=== PATIENT | female | born 1950 | race Caucasian/White ===

== ENCOUNTER → 2017-11-16 | Day surgery (SDC) | payer BC ==
[2017-11-02 11:26] VITALS: Ht 167.6 cm; Wt 97.7 kg
[~2017-11-16] VITALS: Ht 167.6 cm; Wt 97.7 kg
[~2017-11-16] MED LIST: 500ML BSS 0.3ML EPI 1:1000PF IRRIG ONE; ACETAMINOPHEN 325 MG TAB PO PRN; ALBU18002 INH; AMVISC PLAIN 0.8ML SYRINGE INT OCU ONE; AMVISC PLUS 0.8ML SYRINGE INT OCU ONE; APIX1TAB3 PO; ATOR-22 PO; ATROPINE SULFATE 0.1 MG/ML 5ML SYR IV PRN; BSS FLUSH ONE; CHOL100010 PO; CLON2TAB10 PO; DIPH-416 PO; DSY/150 PO; EpHEDrine SULFATE INJ 50 MG/ML AMP IV PRN; EpINEphrine INJ 1MG/ML AMP 1 MG/ML AMP ONE; FENTANYL CITRATE INJ 50 MCG/1 ML 2 ML VIAL ONE; FOLI1TAB8 PO; LACTATED RINGER'S 1000ML 500 ML IV SCH; LIDOCAINE 3.5% OPH GEL PER APPLICATION CHARGE ONE; LIDOCAINE HCL 1% MPF 2 ML VIAL ONE; LIDOCAINE HCL 2% 2 ML VIAL (20MG/ML) ONE; MIDAZOLAM HCL 1 MG/ML 2ML VIAL ONE; OMEP-331 PO; ONDANSETRON INJ 2 MG/ML 2 ML VIAL IV PRN; OXYC20TA50 PO; POVIDONE-IODINE OP SOLN 30 ML BTL ONE; PRAV20TA PO; PROPARACAINE 0.5% OP SOLN PER DROP CHARGE OPL SCH; PROPOFOL IV EMULSION 10 MG/ML 20 ML VIAL ONE; SERT50TA PO; SNM/25100 PO; SPRIN/30 INH; SYMIN INH; TOBRAMYCIN/DEXAMETHASONE OPH OINT PER APPLN CHARGE ONE
[2017-11-16] MEDS: PHENYLEPHRINE HCL 2.5% OP SOLN PER DROP CHARGE OPL SCH ×2 (09:09→09:14)
[2017-11-16] MEDS: TROPICAMIDE 1% OP SOLN PER DROP CHARGE OPL SCH ×2 (09:10→09:15)
[2017-11-16] MEDS: CYCLOPENTOLATE HCL 1% OP SOLN PER DROP CHARGE OPL SCH ×2 (09:11→09:17)
[2017-11-16] MEDS: KETOROLAC 0.5% OP SOLN PER DROP CHARGE OPL SCH ×2 (09:12→09:28)
[2017-11-16] MEDS: GATIFLOXACIN OP SOLN PER DROP CHARGE OPL SCH ×2 (09:13→09:29)
--- NOTE | 2017-11-16 09:24 | History & Physical Bridge - [place] ---
H&P Re-Evaluation Bridge Note: I have examined the patient, reviewed the History & Physical and in the interval since the performance of the History & Physical I have noted the following changes of clinical significance: No changes noted
--- NOTE | 2017-11-16 10:11 | [facility] Operative Report ---
Operative Report Date of Service Nov 16, 2017. Operative Report 1. PREOPERATIVE DIAGNOSIS: Cataract of the left eye. 2. POSTOPERATIVE DIAGNOSIS: Same. 3. PROCEDURE: Phacoemulsification with intraocular lens implantation of the left eye. SURGEON: Dr. Tiburcio Aguilar. ANESTHESIA: Topical Lidocaine gel, 1% Non- Preserved intracameral Lidocaine, and monitored intravenous sedation. INDICATIONS FOR THE PROCEDURE: The patient is a 67 - year-old female with a history of cataract of the left eye causing significant visual impairment. The details of the proposed procedure were explained to the patient who asked appropriate questions and following discussion of all risks, benefits and alternatives agreed to have the procedure done. Patient had corneal astigmatism and therefore elected to have a toric lens placed. 4. OPERATION AND FINDINGS: DESCRIPTION OF PROCEDURE: After informed consent was obtained, the patient was placed in an upright position and the cornea was marked at 105 degrees using the [employer] corneal marking tool. The patient was brought to the Operating Room at the [facility]. The patient was placed in a supine position and then the left eye was prepped and draped in the usual sterile fashion for intraocular surgery. A drop of topical Lidocaine gel was placed in the operative eye. A wire lid speculum was then placed in the fornices. A corneal paracentesis was then created temporally. The Non-Preserved Lidocaine was then instilled into the anterior chamber. The anterior chamber was then pressurized with viscoelastic. A 2.0 mm clear corneal incision was then created temporally. A cystotome was inserted into the anterior chamber and used to create a tear in the anterior lens capsule. This capsular tear was then used to create a small flap and the flap was dragged in a counterclockwise direction in order to create a continuous curvilinear capsulorrhexis. Hydrodissection was accomplished with balanced salt solution. Phacoemulsification of the lens nucleus was then performed in a standard divide- and-conquer technique. The phaco time was 15 seconds with an average power of 10 %. The remaining cortical material was removed using irrigation aspiration. The capsular bag was then filled with viscoelastic. A Cortez [id number] +13.5 diopters lens was then loaded into the injector and injected into the capsular bag. The remaining viscoelastic was removed with the irrigation aspiration handpiece. The lens was aligned with the previously made corneal resendiz. The wound was hydrated and then checked and found to be watertight. The intraocular pressure was checked and found to be adequate. The wire lid speculum was removed and the patient's face was cleaned and dried. TobraDex ointment was placed in the inferior fornix. The patient was discharged to the Recovery Room having tolerated the procedure well. There were no complications. The patient will be seen tomorrow in the office for follow-up. I attest to the content of the Intraoperative Record and any orders documented therein. Any exceptions are noted below.
--- NOTE | 2017-11-16 10:12 | Discharge Instructions-SurgCtr ---
Discharge Instructions Date of Service Nov 16, 2017. Visit Reason for Visit: Cataract Left Eye Discharge Discharge Diagnosis / Problem: cataract Discharge Goals Goal(s): Improve function Activity Recommendations Activity Limitations: per Instructions/Follow-up section Anesthesia . Post Anesthesia Instructions: If you have had General Anesthesia or IV Sedation: * Do not drive today. * Resume driving when surgeon permits. * Do not make important decisions or sign legal documents today. * Call surgeon for: 1. Temperature elevations greater than 101 degrees F. 2. Uncontrollable pain. 3. Excessive bleeding. 4. Persistent nausea and vomiting. 5. Medication intolerance (nausea, vomiting or rash). * For nausea and vomiting use only clear liquids such as: tea, soda, bouillon until nausea subsides, then gradually increase diet as tolerated. * If you have any concerns or questions, call your surgeon's office. If physician is unavailable and it is an emergency, call 911 or go to the nearest emergency room. . Diet Recommendations Home Diet: resume previous diet Procedures Procedures Performed: Left Cataract Phacoemulsification With Intraocular Lens Implant; Toric Lens Pending Studies Studies pending at discharge: no Medical Emergencies . Who to Call and When: Medical Emergencies: If at any time you feel your situation is an emergency, please call 911 immediately. . Non-Emergent Contact Non-Emergency issues call your: [facility] . . "Provider Documentation" section prepared by Tiburcio Aguilar. .
--- NOTE | 2017-11-16 10:26 | Anesthesia Progress Nt - [facility] ---
Anesthesia Post Op Note Date & Time Nov 16, 2017 at 10:26 Vital Signs Pain Intensity: 0 Vital Signs Past 12 Hours Date Time Temp Pulse Resp B/P (MAP) Pulse Ox O2 Delivery O2 Flow Rate FiO2 11/16/17 10:12 36.0 57 16 117/72 (87) 93 Room Air 11/16/17 09:02 36.7 53 20 123/77 (92) 100 Room Air Notes Mental Status: alert / awake / arousable, participated in evaluation Pt Amnestic to Procedure: Yes Nausea / Vomiting: adequately controlled Pain: adequately controlled Airway Patency, RR, SpO2: stable & adequate BP & HR: stable & adequate Hydration State: stable & adequate Anesthetic Complications: no major complications apparent
[2017-11-16 10:34] VITALS: BP 114/67; PULSE 52; O2SAT 95
== END | disposition home or self-care (01) ==
LOC: X.SURG 08:31
PROVIDERS: ATTEND Ophthalmology
DX: H26.9 Unspecified cataract (principal); I48.91 Unspecified atrial fibrillation; F41.9 Anxiety disorder, unspecified; F32.9 Major depressive disorder, single episode, unspecified; J44.9 Chronic obstructive pulmonary disease, unspecified; M15.9 Polyosteoarthritis, unspecified; G47.33 Obstructive sleep apnea (adult) (pediatric); G25.81 Restless legs syndrome

== ENCOUNTER 2018-10-27 06:53 | Observation (INO) ==
[~2018-10-27 06:53] MED LIST changes: -500ML BSS 0.3ML EPI 1:1000PF IRRIG ONE; -ACETAMINOPHEN 325 MG TAB PO PRN; -ALBU18002 INH; -AMVISC PLAIN 0.8ML SYRINGE INT OCU ONE; -AMVISC PLUS 0.8ML SYRINGE INT OCU ONE; -APIX1TAB3 PO; -ATOR-22 PO; -ATROPINE SULFATE 0.1 MG/ML 5ML SYR IV PRN; -BSS FLUSH ONE; +CEFAZOLIN 1000MG 1,000 MG/7.5 ML SYR IV SCH; -CHOL100010 PO; -CLON2TAB10 PO; -DIPH-416 PO; -DSY/150 PO; -EpHEDrine SULFATE INJ 50 MG/ML AMP IV PRN; -EpINEphrine INJ 1MG/ML AMP 1 MG/ML AMP ONE; -FENTANYL CITRATE INJ 50 MCG/1 ML 2 ML VIAL ONE; -FOLI1TAB8 PO; -LACTATED RINGER'S 1000ML 500 ML IV SCH; -LIDOCAINE 3.5% OPH GEL PER APPLICATION CHARGE ONE; -LIDOCAINE HCL 1% MPF 2 ML VIAL ONE; -LIDOCAINE HCL 2% 2 ML VIAL (20MG/ML) ONE; +LR 15ML/HR IV SCH; -MIDAZOLAM HCL 1 MG/ML 2ML VIAL ONE; -OMEP-331 PO; -ONDANSETRON INJ 2 MG/ML 2 ML VIAL IV PRN; -OXYC20TA50 PO; +PATIENT'S HEIGHT AND/OR WEIGHT NEEDED SCH; -POVIDONE-IODINE OP SOLN 30 ML BTL ONE; -PRAV20TA PO; -PROPARACAINE 0.5% OP SOLN PER DROP CHARGE OPL SCH; -PROPOFOL IV EMULSION 10 MG/ML 20 ML VIAL ONE; -SERT50TA PO; -SNM/25100 PO; -SPRIN/30 INH; -SYMIN INH; -TOBRAMYCIN/DEXAMETHASONE OPH OINT PER APPLN CHARGE ONE
[2018-10-27] MEDS ORDERED: CEFAZOLIN 2,000 MG/15 ML IV PUSH IV ONE (08:29)
[2018-10-27] MEDS ORDERED: CEFAZOLIN 2000MG 2,000 MG/15 ML SYR IV SCH (08:30)
--- NOTE | 2018-10-27 08:52 | Pre Anesthesia Assessment ---
Date of Service October 27, 2018 Pre Sedation Assessment Vital Signs Temp Pulse Resp BP Pulse Ox 10/27/18 07:46 37.1 C 51 L 20 146/74 H 94 Cardiovascular + regular rate Respiratory + respiratory effort normal Pre-Sedation Airway Assessment Smoking Status: Current every day smoker Hx Sleep Apnea: No Hx Difficult Intubation: No Short, Thick Neck: No Thyromental Distance: > or= 3.5 Finger Breadths Oral Cavity: + WNL Mallampati Class: III ASA: ASA3 Procedure Planning Contraindications for Sedation: none Current Medications Reviewed: Yes Notes The planned sedation has been discussed with the patient. Informed Consent was obtained. I have identified the patient, determined the appropriateness of sedation and have assessed the patient immediately prior to the procedure. All medicine(s) and interventions are by my order.
--- NOTE | 2018-10-27 08:53 | History & Physical Bridge Note ---
Date of Service October 27, 2018 History & Physical Bridge Note I have examined the patient, reviewed the History & Physical and in the interval since the performance of the History & Physical I have noted the following changes of clinical significance: no changes noted
[2018-10-27] MEDS ORDERED: BACITRACIN INJ 50,000 UNIT VIAL ONE (08:54)
[2018-10-27] MEDS ORDERED: BUPIVACAINE 0.25% 30 ML VIAL ONE (08:54)
[2018-10-27] MEDS ORDERED: LIDOCAINE HCL 1% 20 ML VIAL ONE (08:54)
[2018-10-27] MEDS ORDERED: fentaNYL citrate 100 MCG/2 ML VIAL ONE ×2 (09:08→09:28)
[2018-10-27] MEDS ORDERED: MIDAZOLAM HCL 5 MG/ML 1 ML VIAL ONE ×2 (09:08→09:28)
[2018-10-27] MEDS ORDERED: DiphenhydrAMINE HCL 50 MG/ML VIAL ONE (09:40)
[2018-10-27] MEDS ORDERED: OXYCODONE HCL IR 5 MG TAB (IMMEDIATE RELEASE) PO PRN (10:19)
[2018-10-27] MEDS ORDERED: ACETAMINOPHEN 325 MG TAB PO PRN (10:19)
--- NOTE | 2018-10-27 10:19 | Procedure Note ---
Procedure Note Date of Service October 27, 2018 Note Procedure performed: Implantation of dual-chamber permanent pacemaker Staff pyrotechnician: Sukumar Lam MD Indication: Patient is a 68-year-old woman with a history of atrial fibrillation and rapid ventricular rates. She was also noted on outpatient monitoring to have periods of sinus arrest lasting up to 5 seconds when in sinus rhythm. She is therefore felt to be a good candidate for permanent pacemaker due to tachybradycardia syndrome. The implant is being performed for symptomatic nonreversible sinus node dysfunction. A dual-chamber device was selected as the patient is currently in sinus rhythm and wished to maintain AV synchrony. Procedure in detail: The patient was informed of the risks benefits and alternatives to the intended procedure and she wished to proceed. She was taken to the electrophysiology suite in a fasting state. A preoperative antibiotic had been administered. The patient was monitored electrocardiographically throughout today's procedure and conscious sedation was administered per protocol. The left upper pectoral area is prepped and draped in usual sterile fashion. This area was anesthetized using subcutaneous administration of a xylocaine solution. An incision was made at this site and carried down to the prepectoralis fascia using sharp dissection. Electrocautery was also employed for dissection as well as for hemostasis. A device pocket was fashioned tissues above the pectoralis muscle. Subsequent to this maneuver the left axillary vein was accessed using modified Seldinger technique. Sheaths were placed over guidewires at this site and used to facilitate passage of the pacing leads to the respective chambers under fluoroscopic guidance. This included right atrial and right ventricular leads. Adequate sensing and threshold parameters were obtained prior to Active fixation of the leads to the endocardial surface. The proximal portion leads were then sutured the prepectoral fascia using nonabsorbable suture. The device pocket was irrigated with antibiotic solution. The leads were then attached to the device. The device and leads were then placed in the pocket and pocket was closed in 3 layers of absorbable suture. Steri-Strips and sterile dressing were applied. The device was tested noninvasively prior to conclusion the procedure. The patient tolerated procedure well there no immediate complications. Equipment used: New pulse generator: Wardrobe Supervisor Panjo. Model number: [id number] serial number [id number] Right atrial lead: Wardrobe Supervisor [employer]. Model number: [id number] serial number [id number] Right ventricular lead: Wardrobe Supervisor [employer]. Model number: [id number] serial number [id number] Measured data: Right atrial lead: P waves measure 3 mV pacing thresholds 0.5 V 0.4 ms with a pacing impedance of 513 ohms Right ventricular lead: R waves measure 3.6 mV. Pacing threshold was 0.5 V 0.4 ms with a pacing impedance of 570 ohms Impression: Successful implantation of dual-chamber permanent pacemaker Coding
[2018-10-27] MEDS ORDERED: clonazePAM 1 MG TAB PO PRN (11:52)
[2018-10-27] MEDS ORDERED: TRAZODONE HCL 50 MG TAB PO PRN (11:52)
[2018-10-27] MEDS ORDERED: ALBUTEROL 0.083% NEBU SOLN 3 ML VIAL NEB PRN (11:52)
[2018-10-27] MEDS: OXYCODONE HCL IR 5 MG TAB (IMMEDIATE RELEASE) PO PRN ×3 (12:14→23:12)
[2018-10-27] MEDS ORDERED: PRAVASTATIN SOD 10 MG TAB PO SCH (17:00)
[2018-10-27] MEDS: CEFAZOLIN 1000MG 1,000 MG/7.5 ML SYR IV SCH (17:23)
[2018-10-27] MEDS: BUDESONIDE/FORMOTEROL FUMARATE 80/4.5 60 PUFFS/INHALER INH SCH (19:28)
[2018-10-27] MEDS ORDERED: CARBIDOPA/LEVODOPA 25/100MG TAB PO SCH (21:00)
[2018-10-27] MEDS ORDERED: OXYBUTYNIN CHLORIDE 5 MG TAB PO SCH (21:00)
[2018-10-28] MEDS: CEFAZOLIN 1000MG 1,000 MG/7.5 ML SYR IV SCH ×2 (02:52→10:05)
--- NOTE | 2018-10-28 07:55 | XRay Report ---
TWO VIEW CHEST CLINICAL HISTORY: Status post pacemaker implantation. FINDINGS: PA and lateral chest radiographs are obtained. No prior studies are available for compariso n at the time of dictation. A 2-lead cardiac pacemaker has been placed and partially obscures the lef t mid chest. Leads project over the right atrial appendage and the right ventricle. The heart is enla rged and there is atherosclerotic calcification of the thoracic aorta. The pulmonary vasculature is n oncongested. Emphysematous change is suggested. There is bibasilar scarring/atelectasis. No airspace consolidation or pleural effusion is identified. There is no pneumothorax. The skeletal structures ar e osteopenic. There is a compression deformity of evidence of previous vertebroplasty involving L1. IMPRESSION: 1. A 2-lead cardiac pacemaker has been placed as above. 2. No pneumothorax is identified post procedure. 3. Cardiomegaly without radiographic evidence of congestive failure. 4. Suspect emphysema. Electronically signed by: Justino Fatima M.D. 10/28/2018 7:54 AM
[2018-10-28] MEDS: BUDESONIDE/FORMOTEROL FUMARATE 80/4.5 60 PUFFS/INHALER INH SCH (08:29)
[2018-10-28] MEDS ORDERED: SERTRALINE HCL 50 MG TABLET PO SCH (09:00)
[2018-10-28] MEDS ORDERED: METOPROLOL SUCC 50MG EXT REL TAB PO SCH (09:00)
[2018-10-28] MEDS ORDERED: TIOTROPIUM BROMIDE 5 PUFF/90 MCG INH INH SCH (09:00)
[2018-10-28] MEDS ORDERED: ASCORBIC ACID 500 MG TAB PO SCH (09:00)
[2018-10-28] MEDS ORDERED: PANTOprazole 40 MG TAB PO SCH (09:00)
--- NOTE | 2018-11-03 13:05 | Discharge Summary ---
Date of Service November 03, 2018 Admission HPI Per Admitting Provider Patient with history of tachy-merle syndrome Principal Diagnosis Tachy-merle syndrome Discharge Exam On the day of discharge the patient did have some moderate pain at the site of the device implant. There is no evidence of hematoma. There is no significant erythema or drainage. Chest x-ray demonstrated adequate lead position without evidence of pneumothorax. Device interrogation revealed normal device function on both leads. Discharge Data Allergies Allergy/AdvReac Type Severity Reaction Status Date / Time Sulfa (Sulfonamide Allergy Unknown swelling Verified 10/27/18 07:45 Antibiotics) of face Procedures Performed Operation Date: 10/27/18 09:00 Actual Procedures p Pacer with A/V Leads (Dual) - Filipe Lam MD Ordered Studies 10/27/18 06:45 EP Lab Images for PACS ONCE Hospital Course (1) Tachy-merle syndrome: On the day of admission the patient underwent implantation of dual-chamber Medtronic pacemaker. This was without complication. The following morning the device function was good there was no evident complication. Total Time Total Time Spent Total Time Spent (In Minutes): 10 Total Time Includes: Examination of the Patient, Discharge Planning and Medication Reconciliation Discharge Plan Discharge Items Patient Disposition: Home - Self-Care Reason For Visit: A-FIB Discharge Diagnosis: Tachy-merle syndrome Discharge Goals: Therapeutic intervention Activity: Per 'Additional Instructions' section Activity Comment: No lifting left arm above shoulder or behind neck for 6 weeks Lifting: No more than 10 pounds Bathing: Keep incision dry Bathing Comment: Keep wound dry and steri-strip intact until f/u in 1 week Driving/Machine Use: No limitations Non-emergency contact: Office Services Clerk Call non-emergency contact if: your pain is unusual for you, you have a fever and your wound has increased redness Follow-up/Referrals: Robert Briceno DO [Primary Care Provider] - Diet: Heart Healthy Addtl Provider Instructions: none Prescriptions: Continued albuterol sulfate 0.63 mg/3 mL Solution For Nebulization 0.63 mg INHALATION QID PRN (Reason: Shortness Of Breath) Qty: 0 RF: 0 omeprazole 40 mg Capsule,Delayed Release(Dr/Ec) 40 mg PO DAILY Qty: 0 RF: 0 pravastatin 10 mg Tablet 10 mg PO DAILY Qty: 0 RF: 0 trazodone 150 mg Tablet 150 mg PO HS Qty: 0 RF: 0 clonazepam 2 mg Tablet 2 - 4 mg PO HS Qty: 0 RF: 0 carbidopa-levodopa 25-100 mg Tablet 1 tab PO HS Qty: 0 RF: 0 folic acid 800 mcg Tablet 0.8 mg PO DAILY 90 Days Qty: 0 RF: 1 Spiriva with HandiHaler 18 mcg Capsule, W/Inhalation Device 1 cap INHALATION DAILY 30 Days Qty: 0 RF: 3 Symbicort 160-4.5 mcg/actuation Hfa Aerosol Inhaler 2 puff INHALATION BID Qty: 0 RF: 0 cholecalciferol (vitamin D3) [Vitamin D3] 5,000 unit Tablet 5,000 unit PO DAILY Qty: 0 RF: 0 diphenoxylate-atropine 2.5-0.025 mg tablet 1 tab PO QID PRN (Reason: diarrhea) Qty: 60 RF: 2 codeine-guaifenesin [Cheratussin AC] 10-100 mg/5 mL liquid 5 ml PO Q6H PRN (Reason: allergy symptoms) Qty: 120 RF: 0 sertraline 50 mg tablet 50 mg PO DAILY Qty: 30 RF: 1 nystatin 100,000 unit/mL Suspension 5 ml PO QID RF: 0 ipratropium-albuterol 0.5 mg-3 mg(2.5 mg base)/3 mL Solution For Nebulization 3 ml INHALATION Q6H PRN (Reason: Wheezing) RF: 0 alendronate 70 mg Tablet 70 mg PO WK RF: 0 tramadol 50 mg Tablet 50 mg PO Q6H PRN (Reason: Pain) RF: 0 ascorbic acid (vitamin C) [Vitamin C] 250 mg Tablet 250 mg PO DAILY RF: 0 ferrous sulfate 325 mg (65 mg iron) Tablet 325 mg PO DAILY RF: 0 albuterol sulfate [ProAir HFA] 90 mcg/actuation Hfa Aerosol Inhaler 2 puff INHALATION Q4H PRN (Reason: Shortness Of Breath) RF: 0 oxybutynin chloride 5 mg Tablet 5 mg PO HS RF: 0 Xarelto 20 mg Tablet 20 mg PO DAILY RF: 0 metoprolol succinate 50 mg Capsule,Sprinkle,Er 24hr 50 mg PO DAILY RF: 0 Stand-Alone Forms: [facility] Discharge Orders: Discharge Order (Routine); Ordered 10/28/18 Ordered By: Filipe Lam Admission Data Admit Date/Time: 10/27/18 10:04 Attending Provider: Filipe Lam Admit Provider: Filipe Lam Primary Care Provider: Robert Briceno Service: Telemetry Other Interventions: Discharge Summary Assessment (RN) Last Done: 10/28/18 10:42 Pending Studies at Discharge: No DC Date/Time DO NOT enter until pt leaves facility: 10/28/18 12:10
== END 2018-10-28 12:10 | disposition home or self-care (01) ==
LOC: ASU 06:53 → 2S 06:53